=== PATIENT | male | born 1955 | race Caucasian/White ===

== ENCOUNTER 2017-04-03 13:28 | Emergency (ER) | payer OTHER ==
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
--- NOTE | 2017-04-03 15:05 | ED ORDER SUMMARY ---
..... Patient: SON GAXIOLA JR OrderSheet [facility] VisitID: [id number] [place] [address] 61y, M Registration Date/Time: 04/03/2017 ORDER SHEET Weight: 83.0 kg (stated) Allergies: None GENERAL ORDERS: Chest 1V (Burn) Urgent (13:40 04/03/2017 Orin Davis) (Ack 13:41 LNations ER Tech1) (13:57 LNations ER Tech1) CBC w Diff Urgent (13:40 04/03/2017 Orin Davis) (Ack 13:41 LNations ER Tech1) (14:06 Perla R.N.) CMP Urgent (13:40 04/03/2017 Orin Davis) (Ack 13:41 LNations ER Tech1) (14:06 Perla R.N.) Richard Catheter (15:10 04/03/2017 Orin Davis) (15:36 ASchmuck) MEDICATION ORDERS: Tdap IM 0.5 mL (NOW, per protocol) (15:10 04/03/2017 Orin Davis) (15:30 Jc R.N.) IV FLUIDS: IV NS : initial bolus none -, then 1000 mL/hr for X1 (NOW) (13:40 04/03/2017 Orin Davis) (13:49 ASchmuck) Morphine IV 4 mg (HIGH ALERT MEDICATION, NOW) (13:40 04/03/2017 Orin Davis) (13:50 ASchmuck) Zofran IV 4 mg (NOW) (13:40 04/03/2017 Orin Davis) (13:50 ASchmuck) Morphine IV 4 mg (HIGH ALERT MEDICATION, NOW) (14:06 04/03/2017 Perla R.N. per protocol) (14:06 Perla R.N.) Dilaudid IV 1 mg (HIGH ALERT MEDICATION, NOW) (14:19 04/03/2017 AScarturo verbal order read back to Orin Davis) (14:21 ASchmuck) IV Lactated Ringers : initial bolus none -, then 650 mL/hr for 5 L (NOW) (14:41 04/03/2017 Orin Davis) (14:47 [facility]) Dilaudid IV 1 mg (HIGH ALERT MEDICATION, NOW) (15:20 04/03/2017 Orin Davis) (15:31 Jc FraustoNRyan) ORDER SHEET NOTES: [Electronically signed by Steve Godinez Dr. (16:37 04/03/2017)] [Electronically signed by Beth Boland (17:03 04/03/2017)] [Electronically locked/signed by Beth Boland (17:03 04/03/2017)]
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
--- NOTE | 2017-04-03 17:03 | ED MAR SUMMARY ---
..... Medication Administration Record [facility] [address] [place] [address] Patient: SON GAXIOLA Visit ID: [id number] 61y, M Weight: 83.0 kg Height/Length: 72 in BMI: 24.8 ALLERGIES: None Start 13:44 04/03/2017 Beth Boland,, Stop 14:47 04/03/2017 Beth Boland, Medication Administered: IV NS (SALINE), Dose: IV Fluids over 1 hour(s), Rate: 1000 mL/hr, Dispensed: 1000 mL bag, Site: #1 left AC. Medication Ordered: IV NS : initial bolus none -, then 1000 mL/hr for X1 (NOW). Given 13:47 04/03/2017 Beth Boland, Medication Administered: MORPHINE [IVP], Dose: 4 mg IVP over 30 second(s), Site: #1 left AC. Medication Ordered: Morphine IV 4 mg (HIGH ALERT MEDICATION, NOW). Given 13:50 04/03/2017 Beth Boland, Medication Administered: ZOFRAN [IVP] (ONDANSETRON HCL), Dose: 4 mg IVP over 1 minute(s), Site: #1 left AC. Medication Ordered: Zofran IV 4 mg (NOW). Given 14:06 04/03/2017 Mario Car R.N. Medication Administered: MORPHINE [IVP], Dose: 4 mg IVP over 2 minute(s), Site: #1 left AC. Medication Ordered: Morphine IV 4 mg (HIGH ALERT MEDICATION, NOW). Given 14:21 04/03/2017 Beth Boland, Medication Administered: DILAUDID [IVP] (HYDROMORPHONE HCL PF), Dose: 1 mg IVP over 30 second(s), Site: #1 left AC. Medication Ordered: Dilaudid IV 1 mg (HIGH ALERT MEDICATION, NOW). Start 14:47 04/03/2017 Beth Boland,, Continued Upon Transfer 15:36 04/03/2017 Beth Boland, Medication Administered: IV LACTATED RINGERS, Dose: IV Fluids over 7 hour(s), Rate: 650 mL/hr, Dispensed: 1000 mL bag, Site: #1 left AC. Medication Ordered: IV Lactated Ringers : initial bolus none -, then 650 mL/hr for 5 L (NOW). Given 15:04/03/2017 Jen Moseley RRyanN. Medication Administered: TDAP [IM], Dose: 0.5 mL IM. Medication Ordered: Tdap IM 0.5 mL (NOW, per protocol). Given :04/03/2017 Jen Moseley, R.N. Medication Administered: DILAUDID [IVP] (HYDROMORPHONE HCL PF), Dose: 1 mg IVP, Site: #2 left hand. Medication Ordered: Dilaudid IV 1 mg (HIGH ALERT MEDICATION, NOW).
--- NOTE | 2017-04-03 17:03 | ED MED RECONCILIATION SUMMARY ---
Patient: SON GAXIOLA JR Medication Reconciliation Report [facility] VisitID: [id number] [address] [place] [address] 61y, M Registration Date/Time: 04/03/2017 Weight: 83.0 kg Height/Length: 72 in. BMI: 24.8 ALLERGIES: None The patient's Home Medications are listed below: NONE. The source(s) of the original Home Medication information: patient The following Medications were given to the patient in the Emergency Department: IV NS IV Fluids bolus 0, then 1000 mL/hr, administered: 04/03/2017 1:44:00 PM Morphine [IVP] IVP 4 mg, administered: 04/03/2017 1:47:00 PM Zofran [IVP] IVP 4 mg, administered: 04/03/2017 1:50:00 PM Morphine [IVP] IVP 4 mg, administered: 04/03/2017 2:06:00 PM Dilaudid [IVP] IVP 1 mg, administered: 04/03/2017 2:21:00 PM IV LACTATED RINGERS IV Fluids bolus 0, then 650 mL/hr, administered: 04/03/2017 2:47:00 PM TDAP [IM] IM 0.5 mL, administered: 04/03/2017 3:25:00 PM Dilaudid [IVP] IVP 1 mg, administered: 04/03/2017 3:26:00 PM The following Medications were prescribed to the patient: None.
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
--- NOTE | 2017-04-03 17:03 | ED MED RECONCILIATION SUMMARY ---
Patient: SON GAXIOLA JR Medication Reconciliation Report [facility] VisitID: [id number] [address] [place] [address] 61y, M Registration Date/Time: 04/03/2017 Weight: 83.0 kg Height/Length: 72 in. BMI: 24.8 ALLERGIES: None The patient's Home Medications are listed below: NONE. The source(s) of the original Home Medication information: patient The following Medications were given to the patient in the Emergency Department: IV NS IV Fluids bolus 0, then 1000 mL/hr, administered: 04/03/2017 1:44:00 PM Morphine [IVP] IVP 4 mg, administered: 04/03/2017 1:47:00 PM Zofran [IVP] IVP 4 mg, administered: 04/03/2017 1:50:00 PM Morphine [IVP] IVP 4 mg, administered: 04/03/2017 2:06:00 PM Dilaudid [IVP] IVP 1 mg, administered: 04/03/2017 2:21:00 PM IV LACTATED RINGERS IV Fluids bolus 0, then 650 mL/hr, administered: 04/03/2017 2:47:00 PM TDAP [IM] IM 0.5 mL, administered: 04/03/2017 3:25:00 PM Dilaudid [IVP] IVP 1 mg, administered: 04/03/2017 3:26:00 PM The following Medications were prescribed to the patient: None.
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
--- NOTE | 2017-04-03 17:03 | ED MAR SUMMARY ---
..... Medication Administration Record [facility] [address] [place] [address] Patient: SON GAXIOLA Visit ID: [id number] 61y, M Weight: 83.0 kg Height/Length: 72 in BMI: 24.8 ALLERGIES: None Start 13:44 04/03/2017 Beth Boland,, Stop 14:47 04/03/2017 Beth Boland, Medication Administered: IV NS (SALINE), Dose: IV Fluids over 1 hour(s), Rate: 1000 mL/hr, Dispensed: 1000 mL bag, Site: #1 left AC. Medication Ordered: IV NS : initial bolus none -, then 1000 mL/hr for X1 (NOW). Given 13:47 04/03/2017 Beth Boland, Medication Administered: MORPHINE [IVP], Dose: 4 mg IVP over 30 second(s), Site: #1 left AC. Medication Ordered: Morphine IV 4 mg (HIGH ALERT MEDICATION, NOW). Given 13:50 04/03/2017 Beth Boland, Medication Administered: ZOFRAN [IVP] (ONDANSETRON HCL), Dose: 4 mg IVP over 1 minute(s), Site: #1 left AC. Medication Ordered: Zofran IV 4 mg (NOW). Given 14:06 04/03/2017 Mario Car R.N. Medication Administered: MORPHINE [IVP], Dose: 4 mg IVP over 2 minute(s), Site: #1 left AC. Medication Ordered: Morphine IV 4 mg (HIGH ALERT MEDICATION, NOW). Given 14:21 04/03/2017 Beth Boland, Medication Administered: DILAUDID [IVP] (HYDROMORPHONE HCL PF), Dose: 1 mg IVP over 30 second(s), Site: #1 left AC. Medication Ordered: Dilaudid IV 1 mg (HIGH ALERT MEDICATION, NOW). Start 14:47 04/03/2017 Beth Boland,, Continued Upon Transfer 15:36 04/03/2017 Beth Boland, Medication Administered: IV LACTATED RINGERS, Dose: IV Fluids over 7 hour(s), Rate: 650 mL/hr, Dispensed: 1000 mL bag, Site: #1 left AC. Medication Ordered: IV Lactated Ringers : initial bolus none -, then 650 mL/hr for 5 L (NOW). Given 15:04/03/2017 Jen Moseley RRyanN. Medication Administered: TDAP [IM], Dose: 0.5 mL IM. Medication Ordered: Tdap IM 0.5 mL (NOW, per protocol). Given :04/03/2017 Jen Moseley, R.N. Medication Administered: DILAUDID [IVP] (HYDROMORPHONE HCL PF), Dose: 1 mg IVP, Site: #2 left hand. Medication Ordered: Dilaudid IV 1 mg (HIGH ALERT MEDICATION, NOW).
== END 2017-04-03 15:38 | disposition other institution (70) ==
LOC: ED SRH 13:28
DX: T20.25XA Burn of second degree of scalp [any part], initial encounter (principal); T20.211A Burn of second degree of right ear [any part, except ear drum], initial encounter; T22.221A Burn of second degree of right elbow, initial encounter; T22.211A Burn of second degree of right forearm, initial encounter; T22.251A Burn of second degree of right shoulder, initial encounter; T20.27XA Burn of second degree of neck, initial encounter; T21.23XA Burn of second degree of upper back, initial encounter; T21.24XA Burn of second degree of lower back, initial encounter; Y93.9 Activity, unspecified; W40.8XXA Explosion of other specified explosive materials, initial encounter
CPT/HCPCS: 83475; 90100; 95059